=== PATIENT | male | born 1995 | race Caucasian/White ===

== ENCOUNTER 2025-03-08 17:04 | Emergency (ER) | payer BC, SELFPAY ==
[2025-03-08 17:19] VITALS: BP 135/91; PULSE 108; RESP 18; TEMP 37.1; O2SAT 98
--- NOTE | 2025-03-08 17:26 | ED.SKABFB ---
HPI - Skin/Abscess/Foreign Bdy General Chief complaint: Skin/Abscess/Foreign Body Stated complaint: RASH Time Seen by Provider: 03/08/25 17:20 Source: patient and RN notes reviewed Mode of arrival: ambulatory Limitations: no limitations History of Present Illness HPI narrative: Patient presents today complaining of a mildly pruritic rash x1 week to the right forearm, right ankle, right chest that has been worsening since onset. He has tried no [id number] treatment prior to arrival and states he has not been trying to keep the areas clean. Prior to onset of symptoms he was clearing brush and had exposure to poison leonora. Related Data Allergies Allergy/AdvReac Type Severity Reaction Status Date / Time No Known Allergies Allergy Unverified 03/08/25 17:18 PMFSH Comments At time of signature, I have reviewed and agree with nursing past medical, surgical, social and family history unless otherwise noted. Please see nursing chart for further information. There is no relevant family history pertinent to the presenting complaint Exam Narrative: GENERAL: Well-appearing, well-nourished, and in no acute distress. Forced, rapid speech. HEAD: Normocephalic, atraumatic. EYES: EOMI. No redness or drainage. Conjunctivae normal. ENT: Mucous membranes pink and moist. NECK: Normal AROM. CHEST: No respiratory distress. EXTREMITIES: Normal range of motion. No edema. SKIN: Warm, dry. Capillary refill normal. Normal skin turgor. Patient has large coalesced patches of erythematous maculopapular rash to the right forearm and right anterior chest with small scabbed area to the right medial ankle. Scabbed area to the ankle is weeping a yellow fluid. The patches to the chest and forearm have large areas of scabbing in the center with honey crusting. NEURO: No focal deficits. Alert and oriented x3. Gait steady. Course Course Level of Care: Express Care Visit Vital Signs Vital signs: Vital Signs Temperature 98.8 F 03/08/25 17:19 Pulse Rate 108 H 03/08/25 17:19 Respiratory Rate 18 03/08/25 17:19 Blood Pressure 135/91 H 03/08/25 17:19 Pulse Oximetry 98 03/08/25 17:19 Oxygen Delivery Room Air 03/08/25 17:19 Temperature 98.8 F 03/08/25 17:19 Pulse Rate 108 H 03/08/25 17:19 Respiratory Rate 18 03/08/25 17:19 Blood Pressure 135/91 H 03/08/25 17:19 Pulse Oximetry 98 03/08/25 17:19 Oxygen Delivery Room Air 03/08/25 17:19 Reviewed. RN states patient was moving around during vitals. MDM - Skin/Abscess/Foreign Bdy MDM Narrative Medical decision making narrative: 29-year-old male patient with no reported medical history presents with large patches of mildly pruritic rash with honey crusting after poison leonora exposure, to suggest a contact dermatitis with overlying impetigo. Prescriptions for prednisone and Keflex sent to pharmacy. Tachycardia and elevated BP may be skewed as patient has a forced speech pattern, seems a bit anxious, and was moving around during vitals assessment. He does not seem systemically ill, based on my clinical judgement. We discussed cleaning the areas with soap and water daily, as he states he has not been keeping his skin clean. Differential Diagnosis Differential diagnosis: Likely abscess of skin or subcutaneous tissue, dermatophytosis, urticaria, cellulitis, eczema, impetigo and contact dermatitis Critical Care Time Critical Care Time Critical Care Time: No Discharge Plan Discharge Clinical Impression: Impetigo Contact dermatitis Qualifiers: Contact dermatitis type: unspecified Contact dermatitis trigger: unspecified trigger Qualified Code(s): L25.9 - Unspecified contact dermatitis, unspecified cause Patient Disposition: Home Condition: Stable Instructions: Antibiotic Form, Impetigo (ED), Poison Leonora (ED) Additional Instructions: Please take the Keflex and prednisone as directed. You can take a daily antihistamine such as Zyrtec, Claritin, or Torri to help with any itching. Wash the rash, especially the scabbed areas with soap and water daily. Follow-up with a PCP in 3 days if symptoms are not improving. Your blood pressure was elevated above 120/80 today at Urgent Care. This puts you above the threshold for follow up. Please schedule a followup visit with your personal physician as soon as possible, for further evaluation and treatment. Even blood pressure exceeding 120/80 may indicate pre-hypertension. Patient Language: Kinyarwanda Prescriptions: New prednisone 10 mg tablet See Rx Instructions .ROUTE .COMPLEX Qty: 35 0RF Rx Instructions: 4 tabs daily x5 days, then 2 tabs daily x5 days, then 1 tab daily x5 days cephalexin 500 mg capsule 500 mg PO Q6H 7 Days Qty: 28 0RF Follow-up/Referrals: PHYSICIAN,[facility] HELPER [Primary Care Provider] - Time of Disposition: 17:29
== END 2025-03-08 17:33 | disposition home or self-care (01) ==
PROVIDERS: Emergency Provider Nurse Practitioner
DX: L01.00 Impetigo, unspecified (principal); L25.9 Unspecified contact dermatitis, unspecified cause
CPT/HCPCS: 99203; G0463